=== PATIENT | male | born 1945 | race Two or more races ===

== ENCOUNTER 2017-03-03 12:51 | Inpatient (IN) | payer OTHER ==
[~2017-03-03] VITALS: Ht 180.3 cm; Wt 137.2 kg
[~2017-03-03 12:51] MED LIST: ASPI81TA27 PO; ATO40T PO; CARV25TA PO; DIGO0.1262 PO; FURO80TA PO; GABA300C10 PO; INSU70IN3 SC; LOSA50TA6 PO; OMEP20CA74 PO; TEMA30CA PO; TRAM50TA2 PO
[2017-03-03 14:42] LABS: Basophils # (auto) 0.1 uL; Basophils % (auto) 0.6 % (0.0-2.0); Eosinophils # (auto) 0.1 uL; Hematocrit 40.4 % (41.0-53.0); Hemoglobin 13.6 g/dL (13.5-17.5); Lymphocytes # (auto) 1.9 uL; Lymphocytes % (auto) 17.8 % (10.0-50.0); Mean Corpuscular Hemoglobin 33.1 pg (28.0-32.0); Mean Corpuscular Hgb Conc. 33.7 g/dL (32.0-36.0); Mean Corpuscular Volume 98.1 fL (80.0-100.0); Monocytes # (auto) 0.7 uL; Monocytes % (auto) 6.1 % (0.0-12.0); Neutrophils % (auto) 74.5 % (37.0-80.0); Platelet Count (auto) 238 10^3/uL (140-450); Red Blood Cells 4.12 10^6/uL (4.5-5.90); White Blood Cell 10.7 10^3/uL (4.4-10.8)
[2017-03-03 15:15] LABS: Albumin 3.4 g/dL (3.4-5.0); BUN/Creatinine Ratio 14.9; Bilirubin, Total 0.5 mg/dL (0.2-1.0); Calcium 8.7 mg/dL (8.5-10.1); Magnesium 1.6 mg/dL (1.6-2.6); Potassium 4.3 mmol/L (3.5-5.1); Total Protein 7.4 g/dL (6.4-8.2)
[2017-03-03] MEDS ORDERED: ASPirin 81 mg TAB PO ONE (16:00)
[2017-03-03 16:50] LABS: INR 0.95 (0.9-1.15); Partial Thromboplastin Time 25.7 sec (22.64-33.71); Prothrombin Time 10.4 sec (9.37-12.3)
[2017-03-03 16:58] LABS: Urine Bacteria NONE SEEN /hpf (None Seen); Urine Blood 1+ /uL (Negative); Urine Hyaline Cast FEW /lpf (0 - 2); Urine Mucus FEW (None Seen); Urine Specific Gravity 1.027 (1.001-1.035); Urine WBC <1 /hpf (0 - 3)
[2017-03-03] MEDS ORDERED: LACTULOSE 20Gm/30ML SOLN PO PRN (18:00)
[2017-03-03] MEDS ORDERED: NITROGLYCERIN 0.4 MG SL TAB SL PRN (18:00)
[2017-03-03] MEDS ORDERED: ACETAMINOPHEN 500 MG TAB PO PRN (18:00)
[2017-03-03] MEDS ORDERED: MORPHINE SULFATE 10 MG/ML INJ 1ML SDV IV PRN ×2 (18:00)
[2017-03-03] MEDS ORDERED: DEXTROSE (50%) 50ML SYRG IV PRN (18:00)
[2017-03-03] MEDS ORDERED: LORazepam 0.5 MG TAB PO PRN (18:00)
[2017-03-03] MEDS ORDERED: PROMETHAZINE HCL 25 MG/ML 1ML IV PRN (18:00)
[2017-03-03 18:45] LABS: Alcohol, Urine < 3.0 mg/dL (0-5); Amphetamine Screen, Urine NEGATIVE (NEGATIVE); Barbiturate Scree,Urine NEGATIVE (NEGATIVE); Benzodiazephine Screen, Urine POSITIVE (NEGATIVE); Cannabinoid Screen, Urine NEGATIVE (NEGATIVE); Cocaine Screen, Urine NEGATIVE (NEGATIVE); Opiate Scree,Urine NEGATIVE (NEGATIVE); Phencyclidine Screen, Urine NEGATIVE (NEGATIVE)
[2017-03-03] MEDS: FUROSEMIDE 40 MG/4 ML VIAL IV SCH (19:06)
[2017-03-03] MEDS ORDERED: TEMAZEPAM 15 MG CAP PO PRN (22:00)
[2017-03-03] MEDS ORDERED: ATORVASTATIN 20 MG TAB PO SCH (22:00)
[2017-03-03] MEDS: PANTOPRAZOLE 40 MG TAB PO SCH (22:35)
[2017-03-03] MEDS: GABAPENTIN 300 MG CAP PO SCH (22:35)
[2017-03-03] MEDS: CARVEDILOL 12.5 MG TAB PO SCH (22:35)
[2017-03-03] MEDS: ACCU-CHEK COMFORT CURVE STRIP VI SCH (22:40)
[2017-03-03 23:25] VITALS: BP 146/96
[2017-03-03 23:50] VITALS: BP 129/89
[2017-03-04] MEDS: InsuLIN REG 1unit/0.01ml Soln (100units/ml) SC SCH ×4 (00:25→18:33)
[2017-03-04 03:53] VITALS: BP 137/77
[2017-03-04 06:00] LABS: Basophils # (auto) 0.1 uL; Basophils % (auto) 0.7 % (0.0-2.0); Eosinophils # (auto) 0.1 uL; Eosinophils % (auto) 1.2 % (0.0-7.0); Hematocrit 36.7 % (41.0-53.0); Hemoglobin 12.4 g/dL (13.5-17.5); Lymphocytes # (auto) 1.9 uL; Lymphocytes % (auto) 22.6 % (10.0-50.0); Mean Corpuscular Hemoglobin 33.3 pg (28.0-32.0); Mean Corpuscular Hgb Conc. 33.6 g/dL (32.0-36.0); Mean Corpuscular Volume 98.9 fL (80.0-100.0); Monocytes # (auto) 0.6 uL; Monocytes % (auto) 7.3 % (0.0-12.0); Neutrophils # (auto) 5.6 uL; Neutrophils % (auto) 68.2 % (37.0-80.0); Nucleated Red Blood Cells % 0.1 %; Platelet Count (auto) 188 10^3/uL (140-450); Red Blood Cells 3.72 10^6/uL (4.5-5.90); White Blood Cell 8.2 10^3/uL (4.4-10.8)
[2017-03-04 06:16] LABS: Albumin 2.9 g/dL (3.4-5.0); BUN/Creatinine Ratio 21.5; Calcium 8.8 mg/dL (8.5-10.1); Potassium 3.8 mmol/L (3.5-5.1)
[2017-03-04] MEDS: FUROSEMIDE 40 MG/4 ML VIAL IV SCH ×2 (06:29→18:00)
[2017-03-04] MEDS: GABAPENTIN 300 MG CAP PO SCH ×2 (06:29→14:08)
[2017-03-04 06:30] LABS: Bilirubin, Total 0.5 mg/dL (0.2-1.0); Total Protein 6.4 g/dL (6.4-8.2)
[2017-03-04] MEDS: ACCU-CHEK COMFORT CURVE STRIP VI SCH ×3 (06:44→18:31)
[2017-03-04] MEDS ORDERED: OPTISON 3ml Vial for INJ IV ONE (09:30)
[2017-03-04] MEDS ORDERED: POTASSIUM CHL 20 Meq TABLET PO SCH (10:00)
[2017-03-04] MEDS ORDERED: LOSARTAN POTASSIUM 50 MG TAB PO SCH (10:00)
[2017-03-04] MEDS ORDERED: ASPirin-EC 81 mg tab PO SCH (10:00)
[2017-03-04] MEDS ORDERED: NITROGLYCERIN 0.2MG/HR TOPICAL PATCH TD SCH (10:00)
[2017-03-04] MEDS ORDERED: ENOXAPARIN SOD 40 MG/0.4 ML SYRINGE SC SCH (10:00)
[2017-03-04] MEDS: CARVEDILOL 12.5 MG TAB PO SCH (10:52)
[2017-03-04] MEDS: PANTOPRAZOLE 40 MG TAB PO SCH (10:52)
[2017-03-04] MEDS: HYDROcodone-ACET 5/325MG TAB PO PRN ×2 (10:57→18:31)
[2017-03-04 12:00] VITALS: BP 134/64
[2017-03-04] MEDS ORDERED: FUROSEMIDE 40 MG/4 ML VIAL IV ONE (13:45)
[2017-03-04] MEDS ORDERED: METOLAZONE 5 MG TAB PO SCH (13:45)
[2017-03-04 15:51] VITALS: BP 116/67
[2017-03-04] MEDS ORDERED: FURO40TA4 PO (16:43)
[2017-03-04] MEDS ORDERED: APIX5TAB OR (16:46)
[2017-03-04] MEDS ORDERED: METO2.5T11 PO (16:46)
[2017-03-04 18:00] VITALS: BP 116/67
[2017-03-05] MEDS ORDERED: DIGOXIN 0.25 MG TAB PO SCH (10:00)
== END 2017-03-04 18:50 | disposition home or self-care (01) | DRG 291 ==
LOC: ER 12:51 → TELE 12:52 → DOU IN ICU 23:01
PROVIDERS: ADMIT Internal Medicine; ATTEND Family Medicine
DX: I11.0 Hypertensive heart disease with heart failure (principal); N17.0 Acute kidney failure with tubular necrosis; Z68.41 Body mass index [BMI] 40.0-44.9, adult; E11.65 Type 2 diabetes mellitus with hyperglycemia; I48.0 Paroxysmal atrial fibrillation; J44.9 Chronic obstructive pulmonary disease, unspecified; I50.43 Acute on chronic combined systolic (congestive) and diastolic (congestive) heart failure; E66.01 Morbid (severe) obesity due to excess calories; E78.5 Hyperlipidemia, unspecified; I25.10 Atherosclerotic heart disease of native coronary artery without angina pectoris; I08.0 Rheumatic disorders of both mitral and aortic valves; I70.0 Atherosclerosis of aorta; K21.9 Gastro-esophageal reflux disease without esophagitis; Z79.01 Long term (current) use of anticoagulants; Z82.0 Family history of epilepsy and other diseases of the nervous system; Z82.49 Family history of ischemic heart disease and other diseases of the circulatory system; I25.2 Old myocardial infarction; Z87.891 Personal history of nicotine dependence; Z90.49 Acquired absence of other specified parts of digestive tract; Z88.1 Allergy status to other antibiotic agents; Z79.899 Other long term (current) drug therapy; Z79.4 Long term (current) use of insulin; Z79.82 Long term (current) use of aspirin
CPT/HCPCS: 36415; 71046; 71250; 80053; 80061; 80162; 80307; 81001; 82550; 82962; 83036; 83735; 83880; 84443; 84484; 85025; 85379; 85610; 85652; 85730; 86141; 87081; 93005; 93306; 94761; J1815; Q9956

== ENCOUNTER 2017-10-18 07:26 | Inpatient (IN) | payer OTHER ==
[~2017-10-18] VITALS: Ht 177.8 cm; Wt 140.6 kg
[~2017-10-18 07:26] MED LIST changes: +APIX5TAB OR; -ASPI81TA27 PO; +FURO40TA4 PO; -FURO80TA PO; +LOSA-46 PO; -LOSA50TA6 PO; +METO2.5T11 PO
[2017-10-18] MEDS ORDERED: FUROSEMIDE 40 MG/4 ML VIAL IV ONE ×2 (07:45→12:30)
[2017-10-18 07:58] LABS: Basophils # (auto) 0.1 uL; Basophils % (auto) 0.9 % (0.0-2.0); Eosinophils # (auto) 0.1 uL; Hematocrit 39.9 % (41.0-53.0); Hemoglobin 13.5 g/dL (13.5-17.5); Lymphocytes % (auto) 17.2 % (10.0-50.0); Mean Corpuscular Hemoglobin 32.4 pg (28.0-32.0); Mean Corpuscular Hgb Conc. 33.8 g/dL (32.0-36.0); Mean Corpuscular Volume 95.8 fL (80.0-100.0); Monocytes # (auto) 0.4 uL; Neutrophils # (auto) 4.5 uL; Neutrophils % (auto) 73.9 % (37.0-80.0); Nucleated Red Blood Cells % 0.1 %; Platelet Count (auto) 194 10^3/uL (140-450); Red Blood Cells 4.17 10^6/uL (4.5-5.90)
[2017-10-18 08:11] LABS: INR 0.94 (0.9-1.15); Partial Thromboplastin Time 26.1 sec (23.78-33.04); Prothrombin Time 10.1 sec (9.27-12.13)
[2017-10-18 08:41] LABS: Albumin 3.3 g/dL (3.4-5.0); BUN/Creatinine Ratio 13.5; Bilirubin, Total 0.5 mg/dL (0.2-1.0); Calcium 8.5 mg/dL (8.5-10.1); Potassium 4.2 mmol/L (3.5-5.1)
[2017-10-18] MEDS ORDERED: ENOXAPARIN SOD 150 MG/1 ML SYRINGE SC ONE (09:00)
[2017-10-18 09:26] LABS: Urine Bacteria NONE SEEN /hpf (None Seen); Urine Blood TRACE /uL (Negative); Urine Specific Gravity 1.006 (1.001-1.035); Urine WBC <1 /hpf (0 - 3)
[2017-10-18] MEDS ORDERED: EZET10TA6 PO (09:57)
[2017-10-18] MEDS ORDERED: ASPI325T25 PO (09:57)
[2017-10-18] MEDS ORDERED: NYSTOIN10 TOP (09:57)
[2017-10-18] MEDS ORDERED: LEVA1NEB5 IN (09:57)
[2017-10-18] MEDS ORDERED: MONT10TA34 PO (09:57)
[2017-10-18] MEDS ORDERED: MAGN400C2 PO (09:57)
[2017-10-18] MEDS ORDERED: IBUP800T24 PO (09:57)
[2017-10-18] MEDS ORDERED: FLUT0.05 NAS (09:57)
[2017-10-18] MEDS ORDERED: CARVEDILOL 12.5 MG TAB PO ONE (12:30)
[2017-10-18] MEDS ORDERED: POTASSIUM CHL 10 Meq TABLET PO ONE (12:30)
[2017-10-18] MEDS ORDERED: ASPirin-EC 325mg tab PO ONE (12:30)
[2017-10-18] MEDS ORDERED: ACETAMINOPHEN/CODEINE#3 (300/30mg) TAB PO PRN (12:30)
[2017-10-18] MEDS ORDERED: METOLAZONE 5 MG TAB PO ONE (12:30)
[2017-10-18] MEDS ORDERED: IBUPROFEN 800 MG TAB PO PRN (12:30)
[2017-10-18] MEDS ORDERED: LOSARTAN POTASSIUM 50 MG TAB PO ONE (12:30)
[2017-10-18] MEDS ORDERED: PANTOPRAZOLE 40 MG TAB PO ONE (12:30)
[2017-10-18] MEDS ORDERED: MORPHINE SULF INJ 2 MG/ML SYRINGE 1ML IV PRN (12:45)
[2017-10-18] MEDS ORDERED: AZITHROMYCIN 500MG/ 250ML 250 ML IV ONE (12:45)
[2017-10-18] MEDS ORDERED: ACETAMINOPHEN 325 MG TAB PO PRN (12:45)
[2017-10-18] MEDS ORDERED: INSULIN 70/30 1unit/0.01ml Susp (100units/ml) SC ONE (12:45)
[2017-10-18] MEDS ORDERED: ONDANSETRON HCL 4 MG/2 ML VIAL IV PRN (12:45)
[2017-10-18] MEDS ORDERED: DEXTROSE (50%) 50ML SYRG IV PRN (12:45)
[2017-10-18] MEDS ORDERED: ALUM & MAG HYDROX-SIMETH LIQ(MAALOX) 30 ML PO ONE (12:45)
[2017-10-18] MEDS ORDERED: NITROGLYCERIN 0.4 MG SL TAB SL PRN ×2 (12:45)
[2017-10-18] MEDS ORDERED: LORazepam 0.5 MG TAB PO PRN (12:45)
[2017-10-18] MEDS ORDERED: ZOLPIDEM TARTRATE 5 MG TAB PO PRN (12:45)
[2017-10-18] MEDS ORDERED: MORPHINE SULFATE 4 MG/ML SYR/VIAL IV PRN (12:45)
[2017-10-18] MEDS ORDERED: CLOPIDOGREL BISULFATE 75 MG TAB PO SCH (13:00)
[2017-10-18] MEDS ORDERED: GABAPENTIN 300 MG CAP PO SCH (14:00)
[2017-10-18] MEDS ORDERED: SODIUM CHLOR 0.9% PF (SALINE LOCK) 10ML VIAL/SYR IV SCH (14:00)
[2017-10-18 14:30] VITALS: BP 162/83
[2017-10-18] MEDS ORDERED: InsuLIN REG 1unit/0.01ml Soln (100units/ml) SC SCH ×2 (17:00→22:00)
[2017-10-18] MEDS ORDERED: ACCU-CHEK COMFORT CURVE STRIP VI SCH (17:00)
[2017-10-18] MEDS ORDERED: INSULIN 70/30 1unit/0.01ml Susp (100units/ml) SC SCH (17:30)
[2017-10-18] MEDS ORDERED: FUROSEMIDE 40 MG/4 ML VIAL IV SCH (18:00)
[2017-10-18] MEDS ORDERED: PANTOPRAZOLE 40 MG TAB PO SCH (22:00)
[2017-10-18] MEDS ORDERED: FLUTICASONE PROP NASAL SPR 0.05 % (50MCG) 16GM EACHNOSTRI SCH (22:00)
[2017-10-18] MEDS ORDERED: ENOXAPARIN SOD 100 MG/1 ML SYRINGE SC SCH (22:00)
[2017-10-18] MEDS ORDERED: CARVEDILOL 12.5 MG TAB PO SCH (22:00)
[2017-10-18] MEDS ORDERED: MONTELUKAST SODIUM 10 MG TAB PO SCH (22:00)
[2017-10-18] MEDS ORDERED: POTASSIUM CHL 10 Meq TABLET PO SCH (22:00)
[2017-10-18] MEDS ORDERED: ATORVASTATIN 20 MG TAB PO SCH (22:00)
[2017-10-19] MEDS ORDERED: INSULIN 70/30 1unit/0.01ml Susp (100units/ml) SC SCH (08:00)
[2017-10-19] MEDS ORDERED: METOLAZONE 5 MG TAB PO SCH (10:00)
[2017-10-19] MEDS ORDERED: MAGNESIUM OXIDE 400 MG TAB PO SCH (10:00)
[2017-10-19] MEDS ORDERED: B-COMPLEX W/ C & FOLIC ACID(NEPHROVITE TAB) PO SCH (10:00)
[2017-10-19] MEDS ORDERED: ASPirin-EC 325mg tab PO SCH (10:00)
[2017-10-19] MEDS ORDERED: AZITHROMYCIN 500MG/ 250ML 250 ML IV SCH (10:00)
[2017-10-19] MEDS ORDERED: DOCUSATE SOD 100 MG CAP PO SCH (10:00)
[2017-10-19] MEDS ORDERED: LOSARTAN POTASSIUM 50 MG TAB PO SCH (10:00)
[2017-10-19] MEDS ORDERED: ASPirin 81 mg TAB PO SCH (10:00)
[2017-10-19] MEDS ORDERED: CALCIUM W/VIT D (600MG/400IU) TAB PO SCH (10:00)
== END 2017-10-18 16:48 | disposition left against medical advice (07) | DRG 280 ==
LOC: EDBD 07:26 → ER 07:26 → TELE 07:27
PROVIDERS: ADMIT Internal Medicine; ATTEND Internal Medicine
DX: I21.4 Non-ST elevation (NSTEMI) myocardial infarction (principal); I50.43 Acute on chronic combined systolic (congestive) and diastolic (congestive) heart failure; E44.1 Mild protein-calorie malnutrition; I48.92 Unspecified atrial flutter; I13.0 Hypertensive heart and chronic kidney disease with heart failure and stage 1 through stage 4 chronic kidney disease, or unspecified chronic kidney disease; D68.69 Other thrombophilia; Z68.41 Body mass index [BMI] 40.0-44.9, adult; D63.8 Anemia in other chronic diseases classified elsewhere; E11.21 Type 2 diabetes mellitus with diabetic nephropathy; E11.22 Type 2 diabetes mellitus with diabetic chronic kidney disease; E66.01 Morbid (severe) obesity due to excess calories; E78.5 Hyperlipidemia, unspecified; I25.10 Atherosclerotic heart disease of native coronary artery without angina pectoris; N18.3 Chronic kidney disease, stage 3 (moderate); J44.9 Chronic obstructive pulmonary disease, unspecified; Z82.49 Family history of ischemic heart disease and other diseases of the circulatory system
CPT/HCPCS: 36415; 71046; 80053; 81001; 82962; 83880; 84484; 85025; 85610; 85730; 93005; 96365; 96372; 96375; 99291